=== PATIENT | female | born 1995 | race Caucasian/White ===

== ENCOUNTER 2020-01-21 14:35 | Observation (INO) | payer MEDICAID ==
[~2020-01-21] VITALS: Ht 152.4 cm; Wt 64.0 kg
[2020-01-21 15:06] VITALS: BP 136/59
[2020-01-21] MEDS ORDERED: BETAMETH ACET/BETAMETH NA PH 30 MG/5 ML VIAL IM SCH (15:20)
[2020-01-21] MEDS ORDERED: PNV91TAB8 PO (15:41)
== END 2020-01-21 16:05 | disposition home or self-care (01) ==
LOC: MLD 14:35
PROVIDERS: ADMIT Obstetrics & Gynecology; ATTEND Obstetrics & Gynecology
DX: O60.03 Preterm labor without delivery, third trimester (principal); Z3A.30 30 weeks gestation of pregnancy
CPT/HCPCS: 81000; 96372; G0378; J0702

== ENCOUNTER 2020-01-22 15:27 | Observation (INO) | payer MEDICAID ==
[~2020-01-22] VITALS: Ht 152.4 cm; Wt 64.0 kg
[~2020-01-22 15:27] MED LIST: PNV91TAB8 PO
[2020-01-22 16:01] VITALS: BP 110/61
[2020-01-22] MEDS ORDERED: BETAMETH ACET/BETAMETH NA PH 30 MG/5 ML VIAL IM SCH (16:15)
== END 2020-01-22 16:35 | disposition home or self-care (01) ==
LOC: MLD 15:27
PROVIDERS: ADMIT Obstetrics & Gynecology; ATTEND Obstetrics & Gynecology
DX: O60.03 Preterm labor without delivery, third trimester (principal); Z3A.31 31 weeks gestation of pregnancy
CPT/HCPCS: 96372; G0378; J0702; 59025; 81000